=== PATIENT | female | born 1960 | race Caucasian/White ===

== ENCOUNTER → 2020-07-22 12:58 | Outpatient (CLI) | payer BC, SELFPAY ==
--- NOTE | 2020-07-22 13:25 | XR_ITS ---
PROCEDURE: XR CHEST PORTABLE CLINICAL HISTORY: COVID OUT PATIENT COMPARISON: No exams were available for comparison FINDINGS: The cardiomediastinal silhouette and pulmonary vascularity are within normal limits. The lungs are clear without infiltrates, suspicious nodules, or pleural effusions. No acute bony abnormalities. IMPRESSION: No acute findings. Dictated by: Sánchez Lynne MD 07/22/2020 13:51 Sánchez Lynne MD in [place] 07/22/2020 13:51
[2020-07-22 17:27] LABS: Adenovirus,PCR Not Detected (NotDetected); Bordetella Pertussis Not Detected (NotDetected); Chlamydophila Pneumoniae, PCR Not Detected (NotDetected); Coronavirus 19, PCR Not Detected (NotDetected); Coronavirus 229E Not Detected (NotDetected); Coronavirus NL63 Not Detected (NotDetected); Coronavirus OC43 Not Detected (NotDetected); Coronovirus HKU1,PCR Not Detected (NotDetected); Human Metapneumovirus Not Detected (NotDetected); Influenza A, PCR Not Detected (NotDetected); Influenza AH1, 2009 Not Detected (NotDetected); Influenza AH1, PCR Not Detected (NotDetected); Influenza AH3,PCR Not Detected (NotDetected); Influenza B, PCR Not Detected (NotDetected); Mycoplasma Pneumoniae, PCR Not Detected (NotDetected); Parainfluenza 1, PCR Not Detected (NotDetected); Parainfluenza 2, PCR Not Detected (NotDetected); Parainfluenza 3, PCR Not Detected (NotDetected); Parainfluenza 4, PCR Not Detected (NotDetected); Respiratory Syncytial Virus Not Detected (NotDetected)
[2020-07-22 19:44] LABS: Rhinovirus/Enterovirus Detected (NotDetected)
== END ==
PROVIDERS: PCP Internal Medicine Adolescent Medicine; Visit Provider Internal Medicine Adolescent Medicine
DX: Z03.818 Encounter for observation for suspected exposure to other biological agents ruled out (principal); B34.1 Enterovirus infection, unspecified; R05 Cough
CPT/HCPCS: 71045; 87581; 87633; 87798; U0003

== ENCOUNTER 2021-01-19 15:33 | Emergency (ER) | payer BC, SELFPAY ==
[2021-01-19 15:34] VITALS: BP 150/94; PULSE 70; RESP 18; TEMP 36.7; O2SAT 98; BMI 26.1
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
[2021-01-19 15:41] VITALS: BMI 24.5
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
--- NOTE | 2021-01-19 16:06 | PC.NURSE ---
pt to CT
[2021-01-19 16:28] VITALS: BP 138/67; PULSE 65; O2SAT 97
[2021-01-19 17:01] VITALS: BP 140/62; PULSE 72; O2SAT 97
[2021-01-19 17:22] VITALS: BP 140/62; PULSE 72; RESP 14; TEMP 526.6; TEMP 980; O2SAT 97
== END 2021-01-19 17:25 | disposition home or self-care (01) ==
PROVIDERS: Emergency Provider Family Medicine; PCP Internal Medicine Adolescent Medicine
DX: S16.1XXA Strain of muscle, fascia and tendon at neck level, initial encounter (principal); S13.4XXA Sprain of ligaments of cervical spine, initial encounter; V49.49XA Driver injured in collision with other motor vehicles in traffic accident, initial encounter; Y92.488 Other paved roadways as the place of occurrence of the external cause
CPT/HCPCS: 70450; 71045; 72125; 73030; 96372; 96374; 99282

== ENCOUNTER → 2021-03-05 07:38 | Outpatient (CLI) | payer SELFPAY ==
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
== END ==
PROVIDERS: PCP Internal Medicine Adolescent Medicine; Visit Provider Internal Medicine Adolescent Medicine
DX: M54.2 Cervicalgia (principal); V89.2XXA Person injured in unspecified motor-vehicle accident, traffic, initial encounter
CPT/HCPCS: 72141; 76376

== ENCOUNTER 2021-04-05 11:00 | Outpatient (RCR) | payer BC, SELFPAY ==
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
== END 2021-04-05 14:29 | disposition home or self-care (01) ==
LOC: PT.CARL 11:00
PROVIDERS: Visit Provider Internal Medicine Adolescent Medicine
DX: S13.4XXA Sprain of ligaments of cervical spine, initial encounter (principal); M54.2 Cervicalgia; V89.2XXA Person injured in unspecified motor-vehicle accident, traffic, initial encounter
CPT/HCPCS: 97010; 97012; 97014; 97110; 97140; 97163; 97164; G0283

== ENCOUNTER → 2021-04-14 18:55 | Outpatient (CLI) | payer SELFPAY ==
[2021-04-14 19:21] LABS: Basophils # 0.2 K/mm3 (0-0.2); Basophils % 3.2 % (0.1-2.0); Eosinophils # 0.4 K/mm3 (0.0-0.4); Eosinophils % 5.5 % (0.1-12.0); Hematocrit 40.3 % (37.0-47.0); Hemoglobin 13.7 g/dL (12.2-16.2); Lymphocytes % 27.3 % (10-50); Mean Corpuscular HGB Conc 33.9 g/dL (31.8-35.4); Mean Corpuscular Hemoglobin 30.6 pg (27.0-31.2); Mean Corpuscular Volume 90.2 fl (81-99); Mean Platelet Volume 11.9 fl (7.4-10.4); Monocytes # 0.5 K/mm3 (0.1-1.0); Monocytes % 6.8 % (1.7-9.3); Neutrophils # 4.2 K/mm3 (1.8-7.8); Neutrophils % 57.3 % (37.0-80.0); Platelet Count 195 K/mm3 (142-424); Red Blood Count 4.47 M/mm3 (4.20-5.40); Red Cell Distribution Width 13.7 % (11.5-17.5); White Blood Count 7.3 K/mm3 (4.8-10.8)
[2021-04-14 19:45] LABS: Alanine Aminotransferase 71 U/L (12-78); Albumin Level 4.3 g/dl (3.5-5.0); Albumin/Globulin Ratio 1.7 (1.1-1.8); Alkaline Phosphatase 81 U/L (38-126); Anion Gap 13.3 mEq/L (5-15); Aspartate Amino Transferase 46 U/L (14-36); Bilirubin,Total 0.4 mg/dl (0.2-1.3); Blood Urea Nitrogen 11 mg/dl (7-17); Calcium 8.9 mg/dl (8.4-10.2); Carbon Dioxide 29 mmol/L (22.0-30.0); Chloride 104 mmol/L (98-107); Estimated Glomerular Filt Rate 86 ml/min (>60); GFR (African American) 104 ML/MIN (>60); Globulin 2.5 g/dL (1.3-3.2); Glucose 107 mg/dl (74-100); Potassium 4.3 mmoL/L (3.5-5.1); Sodium 142 mmol/L (136-145); Total Protein,Serum 6.8 g/dl (6.3-8.2)
[2021-04-17 03:10] LABS: Anti-Cyclic Citrullinated Pept 6 units (0-19)
[2021-04-17 17:23] LABS: Anti-Centromere B Antibodies <0.2 AI (0.0-0.9); Anti-DNA (DS) Ab Qn <1 IU/mL (0-9); Anti-Jo-1 <0.2 AI (0.0-0.9); Anti-Smith Antibody <0.2 AI (0.0-0.9); Antichromatin Antibodies <0.2 AI (0.0-0.9); Antiscleroderma-70 Antibodies <0.2 AI (0.0-0.9); RNP Antibodies 0.7 AI (0.0-0.9); Sjogren's Anti-SS-A <0.2 AI (0.0-0.9); Sjogren's Anti-SS-B <0.2 AI (0.0-0.9)
== END ==
PROVIDERS: Visit Provider Internal Medicine Adolescent Medicine
DX: M19.90 Unspecified osteoarthritis, unspecified site (principal)
CPT/HCPCS: 80053; 85025; 86038; 86200; 86225; 86235

== ENCOUNTER → 2022-05-23 13:39 | Outpatient (CLI) | payer SELFPAY | PROVIDERS: PCP Internal Medicine Adolescent Medicine; Visit Provider Internal Medicine Gastroenterology | DX: Z01.818 Encounter for other preprocedural examination (principal); Z20.822 Contact with and (suspected) exposure to COVID-19; Z13.810 Encounter for screening for upper gastrointestinal disorder; Z12.11 Encounter for screening for malignant neoplasm of colon | CPT/HCPCS: C9803; U0003; U0005 ==

== ENCOUNTER 2022-05-25 08:36 | Day surgery (SDC) | payer SELFPAY ==
[2022-05-25 08:59] VITALS: BP 134/68; PULSE 65; RESP 18; TEMP 36.6; O2SAT 98
[2022-05-25 09:05] VITALS: BMI 22.3
[2022-05-25 09:09] VITALS: O2SAT 98
--- NOTE | 2022-05-25 10:29 | HMH.SCOPE ---
Procedure: Date: 05/25/22 Patient Date of :: 1960 Procedure Performed:: EGD with dilation Indications:: Dysphagia Performing Provider:: Cooper De La Cruz MD Referring Provider:: Tavo Perez Sedation:: Propofol Procedure:: The gastroscope was gently passed through the incisoral orifice into the oral cavity and under direct visualization the esophagus was intubated. The endoscope was passed down the esophagus, through the stomach, and into the duodenum. Color, texture, mucosa, and anatomy of the esophagus, stomach, and duodenum were carefully examined with the scope. Findings:: Oropharynx: normal Esophagus: overall normal, dilation therapy performed with 58F bougie dilator EG Junction: intact at 40 cm Cardia: normal Fundus: normal Body: normal Antrum: normal Duodenal bulb: normal Duodenum (second and third portion): normal Impression: Symptomatic dysphagia treated with bougie dilation Recommendations:: Consider repeat dilation in about THREE years or so Complications:: None Estimated blood obtained (mL): 0
--- NOTE | 2022-05-25 10:32 | HMH.SCOPE ---
Procedure: Date: 05/25/22 Patient Date of :: 1960 Procedure Performed:: Colonoscopy Indications:: weight loss Performing Provider:: Cooper De La Cruz MD Referring Provider:: Tavo Perez Sedation:: Propofol Procedure:: After placing the patient in the left lateral decubitus position, the colonoscopy was gently inserted into the rectum and under direct visualization advanced to the cecum which was identified by transillumination in the right lower quadrant, identification of the ileocecal valve, appendiceal orifice, and cecal strap. Color, texture, mucosa, and anatomy of the colon were carefully examined with the scope. Findings:: Anal canal: normal Rectum: normal Sigmoid colon: normal without polyps or inflammatory changes Descending colon: normal without polyps or inflammatory changes Splenic flexure: normal Transverse colon: normal without polyps or inflammatory changes Hepatic flexure: normal Ascending colon: normal without polyps or inflammatory changes Cecum: normal Terminal ileum: not visualized Impression: Normal colonoscopy exam Recommendations:: Follow up exam in about TEN years or so, sooner if clinically indicated Complications:: None Estimated blood obtained (mL): 0
[2022-05-25 10:33] VITALS: BP 117/65; PULSE 69; RESP 18; TEMP 36.2; O2SAT 96
[2022-05-25 10:43] VITALS: BP 126/75; PULSE 72; RESP 18; TEMP 36.2; O2SAT 97
[2022-05-25 10:53] VITALS: BP 154/94; PULSE 65; RESP 18; TEMP 36.2; O2SAT 99
--- NOTE | 2022-05-25 10:54 | EXP.ANES.CKL ---
PFSH PFS Medical History COPD (chronic obstructive pulmonary disease) Dupuytren contracture Heart murmur History of gastroesophageal reflux (GERD) Surgical History History of colonoscopy Family History Other Family history of TIAs Family history of acute heart failure Family history of cancer Family history of myocardial infarction Lung cancer Social History Smoking Status: Former smoker alcohol intake: current substance use type: marijuana current occupational status: employed Travel in the last 8 weeks: None marital status: legally caffeine: No [facility] Anesthesia Checklist Patient Identification Patient Identification: Arm Band Structural Data Planned Operative Procedure/s: colonoscopy Consent for Planned Operative Procedure(s) Verified: Yes Verified Documents: Surgical Consent and History and Physical NPO Status Verified Time NPO: 00:00 Additional verifications Anesthesia Reactions: No Airway Assessment C-Spine Mobility Assessed: Yes TMJ Mobility Assessed: Yes Dentition: Good Dentition Neurological Assessment Level of Consciousness: Awake and Alert Anesthesia Plan Anesthesia Risk discussed: Yes Anesthesia Plan: Verified ASA Class: II Anesthesia Type: MAC
[2022-05-25 11:03] VITALS: BP 134/74; PULSE 66; RESP 18; TEMP 36.2; O2SAT 99
== END 2022-05-25 11:03 | disposition home or self-care (01) ==
PROVIDERS: PCP Internal Medicine Adolescent Medicine; Visit Provider Internal Medicine Gastroenterology
PROC: 0DJ08ZZ Inspection of Upper Intestinal Tract, Via Natural or Artificial Opening Endoscopic (ICD-10-PCS; CPT 43235; principal; 2022-05-25 10:30)
DX: Z12.11 Encounter for screening for malignant neoplasm of colon (principal); R13.10 Dysphagia, unspecified; R63.4 Abnormal weight loss
CPT/HCPCS: 45378; 43248

== ENCOUNTER → 2022-08-04 13:34 | Outpatient (CLI) | payer SELFPAY ==
--- NOTE | 2022-08-04 13:38 | XR_ITS ---
FINAL REPORT CLINICAL HISTORY: neck pain, stiffness FINDINGS: CERVICAL SPINE 3 views were obtained. There is no acute fracture. There are moderate degenerative changes at C5-6 and C6-7 with osteophytes. There is mild anterolisthesis of C3 on C4 and C4 on C5. There is no soft tissue abnormality. IMPRESSION: Degenerative changes with no acute bony abnormality. Reviewed, Interpreted and Dictated by Te Goldsmith III, MD Transcribed by Lissette Terrell Authenticated and [facility]
--- NOTE | 2022-08-04 13:38 | XR_ITS ---
FINAL REPORT CLINICAL HISTORY: upper back pain, mainly on left side FINDINGS: THORACIC SPINE 2 views were obtained. There is no acute fracture. There is mild leftward curvature in the lower thoracic spine. The disc spaces are preserved. There is no soft tissue abnormality. IMPRESSION: No acute bony abnormality. Reviewed, Interpreted and Dictated by Te Goldsmith III, MD Transcribed by Lissette Terrell Authenticated and [facility]
== END ==
PROVIDERS: PCP Family Medicine; Visit Provider Family Medicine
DX: S16.1XXA Strain of muscle, fascia and tendon at neck level, initial encounter (principal); R20.0 Anesthesia of skin
CPT/HCPCS: 72040; 72070

== ENCOUNTER → 2022-10-24 13:15 | Outpatient (CLI) | payer SELFPAY ==
--- NOTE | 2022-10-24 13:17 | XR_ITS ---
FINAL REPORT CLINICAL HISTORY: low back pain FINDINGS: AP and lateral views of the lumbar spine were obtained. There is no prior exam for comparison. There is no acute fracture or malalignment. There is multilevel degenerative disc disease which is most pronounced at L3-4 and L5-S1. Vertebral body height and disc space height are preserved. The paraspinal soft tissues are normal. IMPRESSION: No acute osseous abnormality of the lumbar spine. Multilevel degenerative disc disease. Reviewed, Interpreted and Dictated by Margarita Mcpherson MD Transcribed by Roxanna Marie Authenticated and [facility]
== END ==
LOC: RAD 13:16
PROVIDERS: PCP Family Medicine; Visit Provider Family Medicine
DX: M54.50 Low back pain, unspecified (principal)
CPT/HCPCS: 72100

== ENCOUNTER 2024-06-27 12:30 | Outpatient (CLI) | payer SELFPAY ==
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
== END 2024-06-27 23:59 | disposition home or self-care (01) ==
LOC: RAD 12:31
PROVIDERS: PCP Family Medicine; Visit Provider Family Medicine
DX: M54.50 Low back pain, unspecified (principal)
CPT/HCPCS: 72100; 72170